=== PATIENT | female | born 1980 ===

== ENCOUNTER 2018-06-20 14:57 | Emergency (ER) | payer MEDICAID ==
[2018-06-20 15:00] VITALS: BMI 27.4
[2018-06-20 15:03] VITALS: BP 98/60; PULSE 77; RESP 16; TEMP 97.9; O2SAT 99
--- NOTE | 2018-06-20 15:27 | C.PDOC ---
History Of Present Illness 37 y/o female presents to ED with c/o rash to chest radiating up to neck for 1 week associated with intermittently itching. Patient has tried OTC cortisone with no improvement. Patient reports rash is worsening and denies fever, sob, wheezing, known allergens or any other complaints at this time. Time Seen by Provider: 06/20/18 15:10 Chief Complaint (Nursing): Abnormal Skin Integrity History Per: Patient History/Exam Limitations: no limitations Onset/Duration Of Symptoms: Days Current Symptoms Are (Timing): Still Present Past Medical History Reviewed: Historical Data, Nursing Documentation, Vital Signs Vital Signs: Last Vital Signs Temp 97.9 F 06/20/18 15:00 Pulse 77 06/20/18 15:00 Resp 16 06/20/18 15:00 BP 98/60 L 06/20/18 15:00 Pulse Ox 99 06/20/18 15:50 - Medical History PMH: No Chronic Diseases Surgical History: No Surg Hx Family History: States: No Known Family Hx - Social History Hx Alcohol Use: Yes Hx Substance Use: No - Immunization History Hx Tetanus Toxoid Vaccination: No Hx Influenza Vaccination: No Hx Pneumococcal Vaccination: No Review Of Systems Constitutional: Negative for: Fever, Chills Cardiovascular: Negative for: Chest Pain Respiratory: Negative for: Cough, Shortness of Breath Skin: Positive for: Rash. Negative for: Lesions Physical Exam - Physical Exam Appears: Non-toxic, No Acute Distress Skin: Warm, Dry, Rash (Patchy circular erythematous rash scattered to upper chest extending to anterior neck. No vesicular lesions or pustules noted) Head: Atraumatic, Normacephalic Eye(s): bilateral: Normal Inspection Oral Mucosa: Moist Lips: Normal Appearing, No Swelling Throat: Normal, No Erythema, No Exudate Neck: Supple Cardiovascular: Rhythm Regular Respiratory: Normal Breath Sounds, No Rales, No Rhonchi, No Wheezing Extremity: Normal ROM, Capillary Refill (<2 seconds) Neurological/Psych: Oriented x3, Normal Speech, Normal Cognition ED Course And Treatment O2 Sat by Pulse Oximetry: 99 (RA) Pulse Ox Interpretation: Normal Progress Note: Pt in no resp distress , VSS. Will follow up with PMD Reevaluation Time: 22:12 Reassessment Condition: Improved Disposition Counseled Patient/Family Regarding: Diagnosis, Need For Followup, Rx Given - Disposition Disposition: HOME/ ROUTINE Disposition Time: 15:24 Condition: STABLE Additional Instructions: Please follow up with pMD Use cream as directed May take benadryl or zyrtec for itching Return to ER if worse Prescriptions: Nystatin/Triamcinolone [Mycolog Ointment] 1 oin TP BID #60 g Instructions: Ringworm (DC) Forms: [facility] (Maori), Gen Discharge Inst Arabic - Clinical Impression Clinical Impression: Fungal rash of torso - PA / [employer] / Resident Statement MD/DO has reviewed & agrees with the documentation as recorded. - Scribe Statement The provider has reviewed the documentation as recorded by the Dionneibolimpia Kumar All medical record entries made by the Blanca were at my direction and personally dictated by me. I have reviewed the chart and agree that the record accurately reflects my personal performance of the history, physical exam, medical decision making, and the department course for this patient. I have also personally directed, reviewed, and agree with the discharge instructions and disposition.
== END 2018-06-20 15:55 | disposition home or self-care (01) ==
LOC: C.ER 14:57
DX: R21 Rash and other nonspecific skin eruption (principal)